=== PATIENT | female | born 1985 | race Caucasian/White ===

== ENCOUNTER 2017-12-09 06:41 | Emergency (ER) | payer OTHER ==
[~2017-12-09] VITALS: Ht 170.2 cm; Wt 68.0 kg
[~2017-12-09 06:41] MED LIST: CEPHALEXIN500 MG PO; DIFLUCAN100 MG PO
--- NOTE | 2017-12-10 08:06 | EKG ---
[facility] [address] [place] [address] Signed Sinus bradycardia with sinus arrhythmia Otherwise normal ECG When compared with ECG of 18-JUL-2016 22:58, premature ventricular complexes are no longer present Confirmed by EMERALD OLIVER MD ([id number]) on 12/10/2017 8:05:53 AM Electronically Signed By: EMERALD OLIVER MD 12/10/17 0806 PATIENT NAME: JORDON PIZANO WEN Electrocardiogram DATE OF : 89 PHYSICIAN: EMERALD OLIVER MD REPORT #: [id number] REPORT IS CONFIDENTIAL AND NOT TO BE RELEASED WITHOUT AUTHORIZATION
== END 2017-12-09 10:30 | disposition home or self-care (01) ==
LOC: ED 06:41
DX: R11.2 Nausea with vomiting, unspecified (principal); R19.7 Diarrhea, unspecified
CPT/HCPCS: 71045; 80053; 84484; 85025; 93005; 93010; 96360; 99284; J7030